=== PATIENT | female | born 1950 | race Two or more races ===

== ENCOUNTER 2023-05-27 16:11 | Emergency (ER) | payer OTHER ==
[~2023-05-27] VITALS: Ht 162.6 cm; Wt 88.0 kg
[2023-05-27] MEDS ORDERED: [UNRECOGNIZED DRUG - OTHER] (16:39)
[2023-05-27] MEDS ORDERED: LIPITOR20 MG (16:39)
[2023-05-27] MEDS ORDERED: SYNTHROID50 MCG (16:39)
[2023-05-27] MEDS ORDERED: LOSOL (16:39)
[2023-05-27] MEDS ORDERED: PLAVIX75 MG (16:39)
[2023-05-27 18:03] LABS: URINE APPEARANCE Cloudy; URINE BILIRRUBIN Negative (NEGATIVE); URINE BLOOD Negative; URINE COLOR Yellow; URINE GLUCOSE Negative (NEGATIVE); URINE LEUKOCYTE Moderate; URINE NITRATE Negative; URINE PROTEIN Negative (NEGATIVE); URINE UROBILINOGEN 0.2 E.U./dl
[2023-05-27 18:03] LABS: HEMATOCRIT 38.5 % (36.0-45.00); HEMOGLOBIN 12.9 g/dL (12.0-15.00); MEAN CORPUSCULAR HEMOGLOBIN 28.1 pg (27.00-32.0); MEAN CORPUSCULAR HGB CONC 33.4 g/dl (32.0-36.0); PLATELET COUNT 225 K/uL (150-450); RED BLOOD COUNT 4.58 M/uL (4.00-6.00); RED CELL DISTRIBUTION WIDTH 14.3 % (11.5-14.5)
[2023-05-27 18:04] LABS: URINE BACTERIA 1189.2 uL (0.0-1933); URINE EPITHELIAL CELLS 58.4 uL (0.0-38.8); URINE RBC 3.4 uL (0.0-20.8); URINE WBC 269.6 uL (0.0-23.2)
[2023-05-27 18:31] LABS: ALBUMIN 3.7 gm/dL (3.4-5.0); ALKALINE PHOSPHATASE 100 U/L (50-136); ALT/SGPT 17 U/L (12-78); ANION GAP 5 (10.0-20.0); AST/SGOT 18 U/L (15-37); BILIRUBIN TOTAL 0.26 mg/dL (0.3-1.2); BLOOD UREA NITROGEN 19 mg/dL (7-18); BUN CREA RATIO 18 (7.0-25.0); CALCIUM 8.9 mg/dL (8.5-10.1); CARBON DIOXIDE 31 mEq/L (21-32); CHLORIDE 110 mmol/L (98-107); CREATININE SERUM 1.06 mg/dL (0.55-1.02); GFR 50.96; GLOBULINA 3.7 G/DL (2.4-3.5); GLUCOSE FASTING 104 mg/dL (65-100); LIPASE 35 U/L (13-75); OSMOLALITY SERUM 286 MOSM/KG (275-295); POTASSIUM 4.22 mEq/L (3.5-5.1); SODIUM 142 mmol/L (136-145); TOTAL PROTEIN 7.4 gm/dL (6.4-8.2)
[2023-05-27 18:50] LABS: CKMB < 1.0 NG/ML (0.5-3.6)
== END 2023-05-27 20:57 | disposition home or self-care (01) ==
LOC: ER 16:11
PROVIDERS: General Practice
DX: N39.0 Urinary tract infection, site not specified (principal); R53.81 Other malaise; Z88.6 Allergy status to analgesic agent; Z88.0 Allergy status to penicillin; Z88.8 Allergy status to other drugs, medicaments and biological substances